=== PATIENT | female | born 1970 | race Caucasian/White ===

== ENCOUNTER 2022-01-21 16:53 | Emergency (ER) | payer OTHER, SELFPAY ==
[2022-01-21 16:55] VITALS: BP 123/66; PULSE 70; PULSE 72; RESP 18; RESP 20; TEMP 36.1; TEMP 36.3; O2SAT 100; O2SAT 99
[2022-01-21 17:09] VITALS: BP 123/66; PULSE 70; RESP 20; TEMP 36.3; O2SAT 99
--- NOTE | 2022-01-21 17:31 | ED.DENTAL ---
HPI - Dental/Oral General Chief complaint: Dental/Oral Stated complaint: jaw/ear pain Time Seen by Provider: 01/21/22 16:56 Source: patient, family and RN notes reviewed Mode of arrival: ambulatory Limitations: no limitations History of Present Illness MD Complaint: tooth pain Location: Tooth # (19) Onset (ago): day(s) (2) Duration: constant Severity: moderate Severity scale (1-10): 5 Relieving factors: nothing Exacerbating factors: chewing Context: history of dental caries Treatment prior to arrival: none Related Data Home Medications Medication Instructions Recorded Confirmed bupropion HCl 100 mg tablet,12 hr 100 mg PO BID 01/21/22 01/21/22 sustained-release buspirone 5 mg tablet 5 mg PO BID 01/21/22 01/21/22 celecoxib 100 mg capsule 100 mg PO DAILY 01/21/22 01/21/22 cyclobenzaprine 10 mg tablet 10 mg PO QHS 01/21/22 01/21/22 duloxetine 20 mg capsule,delayed 20 mg PO BID 01/21/22 01/21/22 release hydroxyzine pamoate 25 mg capsule 25 mg PO QHS 01/21/22 01/21/22 pregabalin 75 mg capsule 75 mg PO BID 01/21/22 01/21/22 ropinirole 0.5 mg tablet 0.5 mg PO QHS 01/21/22 01/21/22 Allergies Allergy/AdvReac Type Severity Reaction Status Date / Time No Known Allergies Allergy Verified 01/21/22 17:04 Review of Systems Review of Systems: All systems reviewed & are unremarkable except as noted in HPI and below Constitutional: Constitutional: Reports no additional constitutional complaints Eyes: Eyes: Reports no additional eye complaints ENT: Reports system reviewed and no additional complaints, except as documented Comments: toothache Cardiovascular: Cardiovascular: Reports no additional cardiovascular complaints Respiratory: Respiratory: Reports no additional respiratory complaints Gastrointestinal: Gastrointestinal: Reports no additional gastrointestinal complaints Genitourinary: Genitourinary: Reports no additional female genitourinary complaints Musculoskeletal: Musculoskeletal: Reports no additional musculoskeletal complaints Integumentary/Breasts: Skin/Breast: Reports system reviewed and no additional complaints, except as docu Neurologic: Reports system reviewed and no additional complaints, except as documented Psychiatric: Psychiatric: Reports no additional psychiatric complaints Endocrine: Endocrine: Reports no additional endocrine complaints Hematologic/Lymphatic: Hematologic/Lymphatic: Reports no additional hematologic/lymphatic complaints Allergic/Immunologic: Allergic/Immunologic: Reports no additional allergic/immunologic complaints [facility] Past Medical History Medical History Back pain GERD (gastroesophageal reflux disease) Restless leg syndrome Toothache Surgical History Surgical History H/O tubal ligation History of carpal tunnel release Social History Social History Smoking status: Current every day smoker Alcohol intake: current Exam Const: General: no acute distress and well nourished Nutritional Appearance: well nourished Orientation/consciousness: patient oriented x3 Limitations: no limitations HENMT: Head: normal to inspection Ears: external ears normal, TM's normal bilaterally and EAC's normal Face/Nose/Sinus: Normal external nose present, Normal nares present, normal facial exam and sinuses nontender Face and sinus: sinuses nontender Mouth: Yes Normal oral and palatal mucosa present and Yes moist mucous membranes Teeth and gingiva: dentition normal Throat: posterior oropharynx normal Other: left lower cheek minimally swollen. multiple carious teeth. TMs and pharynx clear. Eyes: Conjunctivae: conjunctivae normal Pupils: Equal, round and reactive pupils present EOM: EOMs intact bilaterally Neck: Neck: normal visual inspection, no lymphadenopathy and no meningeal signs Chest: Chest
[2022-01-21] MEDS: IBUPROFEN 400 MG TABLET 800 MG PO (17:39)
[2022-01-21] MEDS: cefTRIAXone 1 GM, LIDOCAINE HCL 1% LOCAL INJ 2.1 ML IM (17:40)
== END 2022-01-21 17:50 | disposition home or self-care (01) ==
PROVIDERS: Emergency Provider Emergency Medicine
DX: K02.9 Dental caries, unspecified (principal); K04.7 Periapical abscess without sinus
CPT/HCPCS: 96372; 99283; A9270; J0696

== ENCOUNTER 2023-04-17 18:42 | Outpatient (CLI) | payer OTHER, SELFPAY ==
[2023-04-17 19:24] LABS: Basophils Absolute Auto 0.07 K/mm3 (0.00-0.10); Basophils Percent Auto 0.9 % (0.0-1.0); Eosinophils Absolute Auto 0.23 K/mm3 (0.02-0.50); Eosinophils Percent Auto 2.9 % (1.0-6.0); Hematocrit 41.3 % (35.0-49.0); Hemoglobin 13.9 g/dL (12.0-15.0); Immature Granulocyte Absolute 0.02 K/mm3 (0.00-0.00); Immature Granulocyte Percent A 0.2 % (0.0-0.0); Lymphocytes Absolute Auto 3.73 K/mm3 (1.10-4.50); Lymphocytes Percent Auto 46.5 % (18.0-42.0); Mean Corpuscular HGB Conc 33.7 g/dL (32.0-36.0); Mean Corpuscular Volume 94.9 fL (78.0-102.0); Mean Platelet Volume 9.6 fl (9.2-11.8); Monocytes Absolute Auto 0.71 K/mm3 (0.10-0.90); Monocytes Percent Auto 8.9 % (2.0-11.0); Neutrophils Absolute Auto 3.3 K/mm3 (1.7-7.2); Neutrophils Percent Auto 40.6 % (50.0-70.0); Platelet Count Result 244 K/mm3 (150-420); Red Blood Count 4.35 M/mm3 (4.20-5.40); Red Cell Distribution Width 12.3 % (11.6-14.4)
[2023-04-17 20:24] LABS: Anion Gap 10 mmol/L (8-16); Blood Urea Nitrogen 14 mg/dL (7-18); Calcium 8.8 mg/dL (8.5-10.1); Carbon Dioxide 29 mmol/L (21-32); Chloride 103 mmol/L (98-108); Estimated Glomerular Filt Rate > 60; Glucose 79 mg/dL (70-99); Osmolality Calculated 293 mOsm/kg (285-295); Potassium 4.1 mmol/L (3.5-5.1); Sodium 142 mmol/L (136-145)
== END 2023-04-17 18:43 | disposition home or self-care (01) ==
PROVIDERS: Visit Provider Neurological Surgery
DX: M54.2 Cervicalgia (principal)
CPT/HCPCS: 36415; 80048; 85025